=== PATIENT | male | born 1990 | race Caucasian/White ===

== ENCOUNTER → 2020-07-15 | Outpatient (CLI) | payer BC | LOC: HYPER 08:27 | PROVIDERS: ATTEND Specialist | DX: T81.31XA Disruption of external operation (surgical) wound, not elsewhere classified, initial encounter (principal); L98.492 Non-pressure chronic ulcer of skin of other sites with fat layer exposed; L03.116 Cellulitis of left lower limb; R60.0 Localized edema; E66.09 Other obesity due to excess calories; I10 Essential (primary) hypertension; J45.909 Unspecified asthma, uncomplicated; K61.1 Rectal abscess; K64.9 Unspecified hemorrhoids; K21.9 Gastro-esophageal reflux disease without esophagitis; M43.07 Spondylolysis, lumbosacral region; F41.9 Anxiety disorder, unspecified; F32.9 Major depressive disorder, single episode, unspecified; Z68.37 Body mass index [BMI] 37.0-37.9, adult; Y92.238 Other place in hospital as the place of occurrence of the external cause; Y83.8 Other surgical procedures as the cause of abnormal reaction of the patient, or of later complication, without mention of misadventure at the time of the procedure ==

== ENCOUNTER → 2020-07-22 | Outpatient (CLI) | payer BC | LOC: HYPER 09:03 | PROVIDERS: ATTEND Specialist | DX: T81.31XD Disruption of external operation (surgical) wound, not elsewhere classified, subsequent encounter (principal); L98.492 Non-pressure chronic ulcer of skin of other sites with fat layer exposed; L03.116 Cellulitis of left lower limb; R60.0 Localized edema; E66.09 Other obesity due to excess calories; I10 Essential (primary) hypertension; J45.909 Unspecified asthma, uncomplicated; K61.1 Rectal abscess; K64.9 Unspecified hemorrhoids; K21.9 Gastro-esophageal reflux disease without esophagitis; M43.07 Spondylolysis, lumbosacral region; F41.9 Anxiety disorder, unspecified; F32.9 Major depressive disorder, single episode, unspecified; Z68.37 Body mass index [BMI] 37.0-37.9, adult; Y83.8 Other surgical procedures as the cause of abnormal reaction of the patient, or of later complication, without mention of misadventure at the time of the procedure ==

== ENCOUNTER → 2020-08-05 | Outpatient (CLI) | payer BC | LOC: HYPER 08:56 | PROVIDERS: ATTEND Specialist | DX: T81.31XD Disruption of external operation (surgical) wound, not elsewhere classified, subsequent encounter (principal); L98.492 Non-pressure chronic ulcer of skin of other sites with fat layer exposed; L03.116 Cellulitis of left lower limb; R60.0 Localized edema; E66.09 Other obesity due to excess calories; I10 Essential (primary) hypertension; J45.909 Unspecified asthma, uncomplicated; K61.1 Rectal abscess; K64.9 Unspecified hemorrhoids; K21.9 Gastro-esophageal reflux disease without esophagitis; M43.07 Spondylolysis, lumbosacral region; F41.9 Anxiety disorder, unspecified; F32.9 Major depressive disorder, single episode, unspecified; Z68.37 Body mass index [BMI] 37.0-37.9, adult; Y83.8 Other surgical procedures as the cause of abnormal reaction of the patient, or of later complication, without mention of misadventure at the time of the procedure ==

== ENCOUNTER → 2020-08-19 | Outpatient (CLI) | payer BC | LOC: HYPER 10:54 | PROVIDERS: ATTEND Specialist | DX: T81.31XD Disruption of external operation (surgical) wound, not elsewhere classified, subsequent encounter (principal); L98.492 Non-pressure chronic ulcer of skin of other sites with fat layer exposed; L03.116 Cellulitis of left lower limb; R60.0 Localized edema; E66.09 Other obesity due to excess calories; I10 Essential (primary) hypertension; J45.909 Unspecified asthma, uncomplicated; K61.1 Rectal abscess; K64.9 Unspecified hemorrhoids; K21.9 Gastro-esophageal reflux disease without esophagitis; M43.07 Spondylolysis, lumbosacral region; F41.9 Anxiety disorder, unspecified; F32.9 Major depressive disorder, single episode, unspecified; Z68.37 Body mass index [BMI] 37.0-37.9, adult; Y83.8 Other surgical procedures as the cause of abnormal reaction of the patient, or of later complication, without mention of misadventure at the time of the procedure ==